=== PATIENT | male | born 1955 | race Hispanic/Latino ===

== ENCOUNTER 2021-11-19 15:40 | Emergency (ER) | payer SELFPAY ==
[~2021-11-19] VITALS: Ht 162.6 cm; Wt 74.8 kg
== END 2021-11-19 16:45 | disposition home or self-care (01) ==
LOC: ER 16:34
DX: L02.415 Cutaneous abscess of right lower limb (principal); L02.31 Cutaneous abscess of buttock; I10 Essential (primary) hypertension; E11.9 Type 2 diabetes mellitus without complications
CPT/HCPCS: 99282